=== PATIENT | female | born 1970 | race Caucasian/White ===

== ENCOUNTER 2024-02-19 16:49 | Emergency (ER) | payer BC, SELFPAY ==
[2024-02-19 17:14] VITALS: BP 153/84
[2024-02-19 17:39] LABS: % Basophils 0.6 % (0-2); % Eosinophils 1.4 % (0-6); % Immature Granulocytes 0.4 % (0-0.5); % Lymphocytes 16.7 % (20.5-51.1); % Monocytes 4.5 % (1.7-9.3); % Neutrophils 76.4 % (42.2-75.2); Absolute Basophils 0.1 10^3/uL (0-0.2); Absolute Eosinophils 0.1 10^3/uL (0-0.7); Absolute Lymphocytes 1.7 10^3/uL (1.2-3.4); Absolute Monocytes 0.5 10^3/uL (0.1-0.6); Absolute Neutrophils 7.9 10^3/uL (1.4-6.5); Hematocrit 42.6 % (37.0-47.0); Hemoglobin 14.3 g/dL (12.0-16.0); Mean Corp Hgb Conc. 33.6 g/dL (33.0-37.0); Mean Corpuscular Hgb 27.5 pg (27.0-31.0); Mean Corpuscular Volume 81.9 fL (81.0-99.0); Mean Platelet Volume 9.5 fL (7.4-10.4); Nucleated Red Blood Cells % 0 %; Platelet Count 209 10^3/uL (130-400); Red Cell Dist. Width 14.4 % (11.5-14.5); White Blood Cell Count 10.3 10^3/uL (4.8-10.8)
[2024-02-19 17:53] LABS: ALT (SGPT) 24 U/L (0-35); AST (SGOT) 29 U/L (14-36); Alkaline Phosphatase 97 U/L (38-126); Blood Urea Nitrogen 18 mg/dl (7-17); Calcium 10.4 mg/dl (8.4-10.2); Carbon Dioxide 25 mmol/L (22-30); Chloride 103 mmol/L (98-107); Glucose 122 mg/dl (70-99); Potassium 4.8 mmol/L (3.5-5.1); Sodium 139 mmol/L (135-145); Total Bilirubin 0.7 mg/dl (0.2-1.3); Total Protein 7.4 g/dl (6.3-8.2); eGFR 49.17
--- NOTE | 2024-02-19 18:42 | ED.GENMED ---
History of Present Illness
General
Chief Complaint: Abdominal Pain
Source: patient
Exam Limitations: none
Time Seen by Provider: 02/19/24 18:19
History of Present Illness
History of Present Illness:
See MDM
Past History
Past History
ED Past Medical History: Other (liver transplant [address] Corey at [place])
ED Past Surgical History: Other (right bunion surgery 04/10, Liver transplant)
Social History
Tobacco: Non-smoker
Alcohol: None
Personal:
Living: with family
Phy Exam
Physical Exam
Physical Exam:
See MDM
Course
Orders/Labs/Results
Orders:
Orders
02/19/24 17:29
CMP [Comprehensive Metabolic Panel] Urgent
Complete Blood Count/With Diff Urgent
02/19/24 18:41
0.9% Sodium Chloride 1000 ml [Nss] 1,000 ml IV BOLUS
Diphenhydramine [Benadryl] 25 mg IV NOW STA
Iohexol [Omnipaque] See Protocol PO NOW STA
Metoclopramide [Reglan] 10 mg IV NOW STA
Morphine Sulfate 4 mg IV NOW STA
02/19/24 19:29
Obstruct Series W/PA Chest [CR Obstruct Series W/pa Chest] Urgent
Comment:
Reason For Exam: abd pain, vomiting, decreased bowel sounds
02/19/24 20:38
CT Abd/pel (oral only)-[facility] Only Urgent
Comment:
Reason For Exam: general abd pain, hx liver transplant
02/19/24 22:01
Magnesium Citrate [Citroma] 300 ml PO ONCE ONE
Sennosides [Senokot] 8.6 mg PO NOW STA
Abnormal Lab Results
02/19/24
17:29
Absolute Neuts (auto) 7.9 H 10^3/uL
(1.4-6.5)
Neutrophils % 76.4 H %
(42.2-75.2)
Lymphocytes % 16.7 L %
(20.5-51.1)
BUN 18 H mg/dl
(7-17)
Creatinine 1.3 H mg/dL
(0.6-1.0)
Glucose 122 H mg/dl
(70-99)
Calcium 10.4 H mg/dl
(8.4-10.2)
02/19/24 17:29
02/19/24 17:29
Vital Signs
Initial and Last Documented VS:
Initial Vital Signs
Temp Pulse Resp BP Pulse Ox
98.8 F 76 18 153/84 98
02/19/24 17:14 02/19/24 17:14 02/19/24 17:14 02/19/24 17:14 02/19/24 17:14
Last Documented Vital Signs
Temp Pulse Resp BP Pulse Ox
98.8 F 77 18 130/92 96
02/19/24 17:14 02/19/24 21:33 02/19/24 21:33 02/19/24 21:33 02/19/24 21:33
MDM/Problems Addressed
Differential Diagnosis Includes:
HPI and MDM Narrative:
53-year-old female presenting for evaluation of nausea, vomiting and decreased flatulence. This has been ongoing for the past several days. She initially thought it could be a GI bug or possibly constipation but she is no longer passing gas. She
does have a history of [facility]domo requiring liver transplant 5 years ago. Given her history, will obtain CT to rule out small bowel obstruction
Physical exam
General: Mildly uncomfortable
HEENT: protecting airway. Dry mucous membranes
Neck: appears supple
CV: No evidence of cyanosis
Resp: No accessory muscle use
Abd: Mildly distended, decreased bowel sounds. No significant tenderness
Extremities: No deformities
Neuro: alert
Psych: Normal affect
Skin: Intact
Problems Addressed including Acute and Chronic Conditions affecting care:
1. Possible small bowel obstruction
Acuity: acute
Prognosis: unstable
Details: Given her history and prior surgery, will obtain CT to rule out small bowel obstruction
2. Nausea
Acuity: acute
Prognosis: stable
Details: Given her prior allergies, will give dose of Reglan and Benadryl
Updates
Blood work without clinical significance. Family was adamant about abdominal x-ray before CT. It was performed and nonspecific. She got the CT due to limitations of the x-ray. CT does show diverticulosis without diverticulitis. Given duration
of symptoms without fevers, will refrain from antibiotics as possible diverticulitis. There is moderate stool burden in the ascending colon. Will give dose of Senokot and discussed magnesium citrate at home if symptoms persist
Differential Diagnosis (but not limited to): Small bowel obstruction, constipation, colitis
Testing considered: Abdominal x-ray but would ultimately obtain CT whether or not x-ray showed obstruction and
Drug therapy (if applicable): OTC meds, please see d/c instruction regarding Rx drugs
Amount and/or Complexity of Data Reviewed
Clinical info obtained from: Patient
External data reviewed: N/A
Labs I independently reviewed (but not limited to): White blood cell count normal
Radiology: The CT scan was personally and independently reviewed. In addition, official CT report reviewed.
X-ray independently reviewed: Abdominal x-ray without obstructive pathology
Pulse Ox: not hypoxic
EKG independently reviewed: N/A
Supervisor Fiber Locking: N/A
Critical Care: N/A
Risk of Complication:
Social Determinants of health: Good social support
Discussed with other providers: N/A
Escalation of Care includes Admit/Obs: After being observed in the Emergency Department, pt stable for discharge.
Occasional wrong word or 'sound a like' substitutions may have occurred due to the inherent limitations of voice recognition software. Read the chart carefully and recognize, using context, where substitutions have occurred.
*Critical Care Note
Total Time (30-74mins, 75-104mins- exclusive of procedures): Not Applicable
ED Attending Note
-
Portions of this chart may have been created with voice recognition software.� Occasional wrong word or��sound alike� substitutions may have occurred due to the inherent limitations of voice recognition software.
Discharge Plan
Departure
Patient Disposition: Home (Routine Discharge)
Date of Disposition: 02/19/24
Time of Disposition: 22:05
Patient with high blood pressure during this ER visit?: No
Discharge Problem:
Constipation, Diverticulosis
Instructions: Constipation, Adult (DC)
Prescriptions:
No Action
diltiazem HCl 180 MG capsule,extended release 24hr
240 mg PO DAILY
allopurinol 100 MG tablet
100 mg PO DAILY
pantoprazole 40 MG tablet,delayed release (DR/EC)
40 mg PO DAILY
gabapentin 100 MG capsule
100 mg PO DAILY
metoprolol succinate [Toprol XL] 25 MG tablet extended release 24 hr
50 mg PO DAILY
tacrolimus 1 MG capsule
1 mg PO BID
Referrals:
UNKNOWN - PT DOES,NOT KNOW [Family Provider] -
Activity Restrictions/Additional Instructions:
Please return for any worsening symptoms.
You may return at any time if you have further concerns.
Please follow up with your doctor at the first available appointment, preferably this week.
You were given a dose of Senokot tonight. The theory is that it will start working in the morning when you wake up. If you still have constipation issues tomorrow, you may try MiraLAX. If symptoms persist, you can try the magnesium citrate.
Thank you for choosing [facility].
Interventions
Interventions:
*ED COVID-19 Vaccine History Last Done: 02/19/24 17:14
YM-Dnksdb-Ajnzvjredi Assessment Last Done: 02/19/24 19:27
Discharge Date and Time
Print Language: ROMANSH
[2024-02-19] MEDS: OMNIPAQUE 50 ML PO (18:52)
[2024-02-19] MEDS: BENADRYL 25 MG IV (18:53)
[2024-02-19] MEDS: REGLAN 10 MG IV (18:53)
[2024-02-19] MEDS: MORPHINE SULFATE 4 MG IV (18:53)
[2024-02-19] MEDS: NSS 1000 IV (18:54)
[2024-02-19 21:33] VITALS: BP 130/92
[2024-02-19] MEDS: SENOKOT 8.6 MG PO (22:05)
[2024-02-19] MEDS: CITROMA 300 ML PO (22:05)
== END 2024-02-19 22:32 | disposition home or self-care (01) ==
LOC: EMR 16:49
PROVIDERS: Emergency Medicine; EMERGENCY PHYSICIAN Student in an Organized Health Care Education/Training Program
DX: K59.00 Constipation, unspecified (principal); K57.90 Diverticulosis of intestine, part unspecified, without perforation or abscess without bleeding
CPT/HCPCS: 99285; 96374; 96375 ×2; 96361; 74022; 74176; 80053; 85025

== ENCOUNTER → 2024-06-07 14:00 | Outpatient (REF) | payer BC, SELFPAY | LOC: WDC 14:00 | PROVIDERS: ATTENDING PHYSICIAN Obstetrics & Gynecology Gynecology; FAMILY PHYSICIAN Family Medicine | DX: Z12.31 Encounter for screening mammogram for malignant neoplasm of breast (principal) | CPT/HCPCS: 77063; 77067 ==

== ENCOUNTER → 2025-06-10 14:03 | Outpatient (REF) | payer BC, SELFPAY | LOC: WDC 14:03 | PROVIDERS: ATTENDING PHYSICIAN Obstetrics & Gynecology Gynecology; FAMILY PHYSICIAN Family Medicine | DX: Z12.31 Encounter for screening mammogram for malignant neoplasm of breast (principal) | CPT/HCPCS: 77063; 77067 ==